=== PATIENT | male | born 1995 | race Caucasian/White ===

== ENCOUNTER 2018-06-13 20:01 | Emergency (ER) | payer OTHER ==
[2018-06-13 20:13] VITALS: BP 142/90; PULSE 110; TEMP 98.7; BMI 40.6
[2018-06-13] MEDS ORDERED: IBUPROFEN 400 MG TABLET (FP) PO ONE ×2 (20:47→20:59)
[2018-06-13] MEDS ORDERED: CYCLOBENZAPRINE HCL 10 MG TABLET (FP) PO ONE ×2 (20:47→21:06)
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
[2018-06-13] MEDS ORDERED: CYCLOBENZAPRINE HCL 10 MG TABLET (FP) ONE (20:59)
== END 2018-06-13 22:32 | disposition home or self-care (01) ==
LOC: JERFT 20:01
DX: M62.830 Muscle spasm of back (principal); M54.5 Low back pain; V43.62XA Car passenger injured in collision with other type car in traffic accident, initial encounter; Y92.414 Local residential or business street as the place of occurrence of the external cause; Y93.89 Activity, other specified; Y99.8 Other external cause status
CPT/HCPCS: 72100-TC-FY; 99281-25